=== PATIENT | male | born 1990 | race Caucasian/White ===

== ENCOUNTER 2020-04-30 09:11 | Emergency (ER) | payer BC ==
[2020-04-30 10:47] LABS: Protime INR 0.91
[2020-04-30 10:49] LABS: Basophils % 0.3 % (0-1.3); Hematocrit 46.1 % (39.6-49.0); RBC Red Blood Cell Count 5.19 M/uL (4.33-5.43)
[2020-04-30] MEDS ORDERED: MECLIZINE HCL 12.5 MG TAB ONE (10:54)
[2020-04-30] MEDS ORDERED: NA CHLORIDE 0.9% 1,000 ML ONE (10:55)
[2020-04-30] MEDS ORDERED: ONDANSETRON 4 MG/2 ML VIAL ONE (10:55)
[2020-04-30 11:04] LABS: ALT/SGPT 20 U/L (12-78); AST/SGOT 11 U/L (15-37); Alkaline Phosphatase 88 U/L (45-117); BUN Blood Urea Nitrogen 11 mg/dL (7-18); Bicarbonate 23 mmol/L (21-32); Bilirubin Direct < 0.1 mg/dL (0-0.2); Bilirubin Total 0.3 mg/dL (0.2-1.0); Glucose Level 118 mg/dL (74-106); Magnesium 2.1 mg/dL (1.8-2.4); Potassium 3.9 mmol/L (3.5-5.1); Protein, Total 7.8 g/dL (6.4-8.2); Sodium Level 139 mmol/L (136-145); Troponin (Emerg Dept Use Only) < 0.02 ng/mL (0.0-0.045)
[2020-04-30] MEDS ORDERED: SCOPOLAMINE HYDROBROMIDE PATCH TD ONE (13:15)
--- NOTE | 2020-04-30 14:07 | EDPHYS ---
Physician Documentation [facility] Name: Lizandro Hermosillo Age: 30 yrs Sex: Male : 1990 Arrival Date: 04/30/2020 Time: 09:13 Bed 24 Private MD: Daniel Mcdonald HPI: 04/30 10:15 This 30 yrs old Male presents to ER via Ambulatory with complaints of cp Dizziness, Nausea, Ear Problem. 10:15 The patient presents with dizziness, sense of spinning. Onset: The symptoms/episode cp began/occurred yesterday, and became worse today. Context: just prior to the episode the patient experienced decreased hearing right ear. Associated signs and symptoms: Pertinent positives: nausea, vomiting, Pertinent negatives: abdominal pain, chest pain, focal weakness, headache, seizure. Patient's baseline: Neuro: alert and fully oriented, Motor: no deficits, Ambulation: walks without assistance, Speech: normal. Historical: - Allergies: 09:50 No Known Allergies; ss - Home Meds: 09:50 None [Active]; ss - PMHx: 09:50 Hypertension; ss - PSHx: 09:50 None; ss - Immunization history:: Adult Immunizations up to date. - Social history:: Smoking status: Patient denies any tobacco usage or history of. ROS: 10:17 Eyes: Negative for injury, pain, redness, and discharge. cp 10:17 Constitutional: Negative for body aches, chills, fever, poor PO intake. 10:17 ENT: Positive for hearing loss, Negative for drainage from ear(s), ear pain, sore throat, difficulty swallowing, difficulty handling secretions. 10:17 Cardiovascular: Negative for chest pain, palpitations. 10:17 Respiratory: Negative for cough, shortness of breath, wheezing. 10:17 Abdomen/GI: Positive for nausea and vomiting, Negative for abdominal pain, black/tarry stool, rectal bleeding. 10:17 Skin: Negative for rash. 10:17 Neuro: Positive for dizziness, Negative for altered mental status, headache, numbness, seizure activity, speech changes, syncope, weakness. 10:17 All other systems are negative. Exam: 10:25 Constitutional: The patient appears in no acute distress, alert, awake, cp non-diaphoretic, non-toxic, well developed, well nourished. 10:25 Head/Face: Normocephalic, atraumatic. cp 10:25 Eyes: Periorbital structures: appear normal, Pupils: equal, round, and reactive to light and accomodation, Extraocular movements: intact throughout, Conjunctiva: normal, no exudate, no injection, Sclera: no appreciated abnormality, Lids and lashes: appear normal, bilaterally. 10:25 ENT: External ear(s): are unremarkable, Ear canal(s): are normal, clear, TM's: dullness, bilaterally, Nose: is normal, Mouth: Lips: moist, Oral mucosa: pink and intact, moist. 10:25 Neck: ROM/movement: is normal, is supple, without pain, no range of motions limitations. 10:25 Chest/axilla: Inspection: normal, Palpation: is normal, no crepitus, no tenderness. 10:25 Cardiovascular: Rate: normal, Rhythm: regular, Edema: is not appreciated, JVD: is not appreciated. 10:25 Respiratory: the patient does not display signs of respiratory distress, Respirations: normal, no use of accessory muscles, no retractions, labored breathing, is not present, Breath sounds: are clear throughout, no decreased breath sounds, no stridor, no wheezing. 10:25 Abdomen/GI: Inspection: abdomen appears normal, Bowel sounds: active, all quadrants, Palpation: abdomen is soft and non-tender, in all quadrants. 10:25 Neuro: Orientation: to person, place \T\ time. Mentation: is normal, Cerebellar function: is grossly normal, Motor: moves all fours, strength is normal, Sensation: is normal. 11:06 ECG was reviewed by the Attending Physician. cp Vital Signs: 09:46 BP 153 / 109; Pulse 77; Resp 16; Temp 97.0(TE); Pulse Ox 99% on R/A; Weight 92.99 kg; ss Height 5 ft. 11 in. (180.34 cm); Pain 0/10; 10:47 BP 140 / 81 Supine; Pulse 70; Resp 17; Pulse Ox 100% ; bp 10:49 BP 157 / 92 Sitting; Pulse 76; bp 10:51 BP 157 / 92 Standing; Pulse 76; bp 11:00 BP 159 / 85; Pulse 72; Resp 17; Pulse Ox 99% ; bp 12:00 BP 137 / 78; Pulse 65; Resp 16; Pulse Ox 99% ; bp 12:40 BP 133 / 68 Supine; Pulse 71; Pulse Ox 99% ; bp 12:42 BP 158 / 95 Sitting; Pulse 78; Resp 16; Pulse Ox 97% ; bp 12:44 BP 153 / 93 Standing; Pulse 77; Resp 16; Pulse Ox 99% ; bp 09:46 Body Mass Index 28.59 (92.99 kg, 180.34 cm) ss MDM: 09:52 Patient medically screened. bouchra 11:00 Differential diagnosis: CVA, hypovolemia, idiopathic dizziness, TIA. cp 14:05 Data reviewed: vital signs, nurses notes, lab test result(s), radiologic studies, CT cp scan, and as a result, I will discharge patient. 14:05 Test interpretation: by ED physician or midlevel provider: ECG. Counseling: I had a cp detailed discussion with the patient and/or guardian regarding: the historical points, exam findings, and any diagnostic results supporting the discharge/admit diagnosis, lab results, radiology results, to return to the emergency department if symptoms worsen or persist or if there are any questions or concerns that arise at home. Response to treatment: the patient's symptoms have markedly improved after treatment, Nausea and dizziness markedly improved and vomiting resolved. Will discharge to home for continued monitoring. 04/30 10:12 Order name: Basic Metabolic Panel 04/30 10:12 Order name: CBC with Diff 04/30 10:12 Order name: LFT's 04/30 10:12 Order name: Magnesium 04/30 10:12 Order name: PT-INR 04/30 10:12 Order name: Troponin (emerg Dept Use Only); Complete Time: 11:41 04/30 11:41 Interpretation: TROPED < 0.02; Reviewed. 04/30 10:12 Order name: CT Head Brain wo Cont cp 04/30 10:13 Order name: Basic Metabolic Panel; Complete Time: 11:41 EDMS 04/30 11:41 Interpretation: Normal except: CL 109; GLUC 118. 04/30 10:13 Order name: CBC with Automated Diff; Complete Time: 11:41 EDMS 04/30 10:13 Order name: Liver (Hepatic) Function; Complete Time: 11:41 EDVT 04/30 11:41 Interpretation: Normal except: AST 11; GLOB 3.8. cp 04/30 10:13 Order name: Magnesium; Complete Time: 11:41 EDMS 04/30 10:13 Order name: Protime (+INR); Complete Time: 11:41 EDMS 04/30 10:03 Order name: Orthostatics; Complete Time: 11:13 cp 04/30 10:12 Order name: EKG; Complete Time: 10:13 cp 04/30 10:12 Order name: Cardiac monitoring; Complete Time: 10: cp 04/30 10:12 Order name: EKG - Nurse/Tech; Complete Time: 11: cp 04/30 10:12 Order name: IV Saline Lock; Complete Time: 11:13 cp 04/30 10:12 Order name: Labs collected and sent; Complete Time: : cp 04/30 10:12 Order name: O2 Per Protocol; Complete Time: : cp 04/30 10:12 Order name: O2 Sat Monitoring; Complete Time: : cp 04/30 11:44 Order name: Misc. Order: repeat orthostatics and ambulate; Complete Time: 12:53 cp EC: Rate is 67 beats/min. Rhythm is regular. HI interval is normal. QRS interval is normal. cp QT interval is normal. T waves are Inverted in leads III, aVF, V3. Interpreted by me. Reviewed by me. Administered Medications: 10:30 Drug: Meclizine 25 mg Route: PO; bp 10:30 Drug: NS 0.9% 1000 ml Route: IV; Rate: 1 bolus; Site: right antecubital; bp 10:30 Drug: Zofran (Ondansetron) 4 mg Route: IVP; Site: right antecubital; bp 14:02 Drug: Scopolamine 1 patches {Note: behind left ear .} Route: Transdermal; Site: iw affected area; 14:51 Not Given (Patient Refused): Phenergan 12.5 mg IVP once iw Disposition: 04/30/20 14:06 Discharged to Home. Impression: Dizziness and giddiness, Nausea and vomiting, Hypertensive heart disease. - Condition is Stable. - Discharge Instructions: Dizziness, Hypertension, Nausea and Vomiting, Adult, Vertigo, How to Take Your Blood Pressure, [id number]. - Prescriptions for Meclizine 25 mg Oral Tablet - take 1 tablet by ORAL route every 8 hours As needed; 30 tablet. promethazine 25 mg Oral Tablet - take 1 tablet by ORAL route every 6 hours As needed; 20 tablet. - Medication Reconciliation Form, Thank You Letter, Antibiotic Education, Prescription Opioid Use form. - Follow up: Isabel Curry MD; When: 2 - 3 days; Reason: Worsening of condition. Follow up: Dheeraj Clark MD; When: 2 - 3 days; Reason: hypertension. - Problem is new. - Symptoms have improved. Addendum: 05/02/2020 06:58 Co-signature as Attending Physician, Daniel Mejía MD I agree with the assessment and c argueta plan of care. Signatures: Dispatcher [employer] EDMS Daniel Mejía MD MD cha Williams, Irene, RN RN iw Gabriella Samano RN RN ss Daniel Monge PA PA Colton Orosco RN RN bp Corrections: (The following items were deleted from the chart) 04/30 14:08 14:06 04/30/2020 14:06 Discharged to Home. Impression: Dizziness and giddiness; Nausea cp and vomiting. Condition is Stable. Forms are Medication Reconciliation Form, Thank You Letter, Antibiotic Education, Prescription Opioid Use. Follow up: Isabel Curry; When: 2 - 3 days; Reason: Worsening of condition. Problem is new. Symptoms have improved. cp 14:24 14:08 04/30/2020 14:06 Discharged to Home. Impression: Dizziness and giddiness; Nausea cp and vomiting; Hypertensive heart disease. Condition is Stable. Discharge Instructions: Dizziness, Nausea and Vomiting, Adult, Vertigo. Prescriptions for Meclizine 25 mg Oral Tablet - take 1 tablet by ORAL route every 8 hours As needed; 30 tablet, promethazine 25 mg Oral Tablet - take 1 tablet by ORAL route every 6 hours As needed; 20 tablet. and Forms are Medication Reconciliation Form, Thank You Letter, Antibiotic Education, Prescription Opioid Use. Follow up: Isabel Curry; When: 2 - 3 days; Reason: Worsening of condition. Follow up: Private Physician; When: 1 - 2 days; Reason: elevated blood pressure. Problem is new. Symptoms have improved. cp 14:51 14:24 04/30/2020 14:06 Discharged to Home. Impression: Dizziness and giddiness; Nausea iw and vomiting; Hypertensive heart disease. Condition is Stable. Discharge Instructions: Dizziness, Nausea and Vomiting, Adult, Vertigo, Hypertension, How to Take Your Blood Pressure, [id number]. Prescriptions for Meclizine 25 mg Oral Tablet - take 1 tablet by ORAL route every 8 hours As needed; 30 tablet, promethazine 25 mg Oral Tablet - take 1 tablet by ORAL route every 6 hours As needed; 20 tablet. and Forms are Medication Reconciliation Form, Thank You Letter, Antibiotic Education, Prescription Opioid Use. Follow up: Isabel Curry; When: 2 - 3 days; Reason: Worsening of condition. Follow up: Dheeraj Clark; When: 2 - 3 days; Reason: hypertension. Problem is new. Symptoms have improved. cp
--- NOTE | 2020-04-30 14:07 | ER ---
Nurse's Notes [facility] Name: Lizandro Hermosillo Age: 30 yrs Sex: Male : 1990 Arrival Date: 04/30/2020 Time: 09:13 Bed 24 Private MD: Diagnosis: Dizziness and giddiness;Nausea and vomiting;Hypertensive heart disease Presentation: 04/30 09:46 Chief complaint: Patient states: Hearing loss and dizziness that began yesterday ss morning, but today the dizziness is much worse. Pt reports when he got up out of bed, it felt like the world was spinning and made him vomit. Coronavirus screen: Client denies travel out of the [place] in the last 14 days. Ebola Screen: Patient denies exposure to infectious person. Patient denies travel to an Ebola-affected area in the 21 days before illness onset. Initial Sepsis Screen: Does the patient meet any 2 criteria? No. Patient's initial sepsis screen is negative. Does the patient have a suspected source of infection? No. Patient's initial sepsis screen is negative. Risk Assessment: Do you want to hurt yourself or someone else? Patient reports no desire to harm self or others. Onset of symptoms was April 29, 2020. 09:46 Method Of Arrival: Ambulatory ss 09:46 Acuity: JUAN JOSE 3 ss Triage Assessment: 10:00 General: Appears distressed, uncomfortable, Behavior is cooperative, appropriate for bp age, anxious. Pain: Denies pain. EENT: Reports decreased hearing. Neuro: Reports dizziness. Cardiovascular: No deficits noted. Respiratory: No deficits noted. GI: Reports nausea, vomiting. : No signs and/or symptoms were reported regarding the genitourinary system. Derm: No deficits noted. Musculoskeletal: No deficits noted. Historical: - Allergies: 09:50 No Known Allergies; ss - Home Meds: 09:50 None [Active]; ss - PMHx: 09:50 Hypertension; ss - PSHx: 09:50 None; ss - Immunization history:: Adult Immunizations up to date. - Social history:: Smoking status: Patient denies any tobacco usage or history of. Screenin:00 Abuse screen: Denies threats or abuse. Denies injuries from another. Nutritional bp screening: No deficits noted. Tuberculosis screening: No symptoms or risk factors identified. Fall Risk None identified. Assessment: 10:00 General: SEE TRIAGE NOTE. GI: Abdomen is non-distended. bp 11:00 Reassessment: No changes from previously documented assessment. Patient and/or family bp updated on plan of care and expected duration. Pain level reassessed. Patient is alert, oriented x 3, equal unlabored respirations, skin warm/dry/pink. PT VOMITING WHEN ATTEMPTING TO AMBULATE. 12:30 Reassessment: No changes from previously documented assessment. Patient and/or family bp updated on plan of care and expected duration. Pain level reassessed. Patient is alert, oriented x 3, equal unlabored respirations, skin warm/dry/pink. PT MOVED TO OTHER CARE AREA. 13:30 Reassessment: Patient appears in no apparent distress at this time. Patient and/or iw family updated on plan of care and expected duration. Pain level reassessed. Patient is alert, oriented x 3, equal unlabored respirations, skin warm/dry/pink. Neuro: Reports dizziness. Respiratory: Respiratory effort is even, unlabored. Vital Signs: 09:46 BP 153 / 109; Pulse 77; Resp 16; Temp 97.0(TE); Pulse Ox 99% on R/A; Weight 92.99 kg; ss Height 5 ft. 11 in. (180.34 cm); Pain 0/10; 10:47 BP 140 / 81 Supine; Pulse 70; Resp 17; Pulse Ox 100% ; bp 10:49 BP 157 / 92 Sitting; Pulse 76; bp 10:51 BP 157 / 92 Standing; Pulse 76; bp 11:00 BP 159 / 85; Pulse 72; Resp 17; Pulse Ox 99% ; bp 12:00 BP 137 / 78; Pulse 65; Resp 16; Pulse Ox 99% ; bp 12:40 BP 133 / 68 Supine; Pulse 71; Pulse Ox 99% ; bp 12:42 BP 158 / 95 Sitting; Pulse 78; Resp 16; Pulse Ox 97% ; bp 12:44 BP 153 / 93 Standing; Pulse 77; Resp 16; Pulse Ox 99% ; bp 09:46 Body Mass Index 28.59 (92.99 kg, 180.34 cm) ED Course: 09:13 Patient arrived in ED. as 09:49 Triage completed. ss 09:50 Colton Olivas, RN is Primary Nurse. bp 09:50 Arm band placed on right wrist. ss 09:51 Daniel [facility]ge [facility]. cp 09:51 Daniel Mejía MD is Attending Physician. cp 10:00 Patient has correct armband on for positive identification. Bed in low position. Call bp light in reach. Side rails up X2. 10:27 CT Head Brain wo Cont In Process Unspecified. EDMS 10:35 Initial lab(s) drawn, by me, sent to lab. Inserted saline lock: 20 gauge in right iw antecubital area, using aseptic technique. Blood collected. 13:41 Primary Nurse role handed off by Colton Olivas RN iw 13:41 Jessenia Shepard, ROBYN is Primary Nurse. iw 14:05 Isabel Curry MD is Referral Physician. cp 14:24 Dheeraj Clark MD is Referral Physician. cp 14:50 No provider procedures requiring assistance completed. IV discontinued, intact, iw bleeding controlled, No redness/swelling at site. Pressure dressing applied. Administered Medications: 10:30 Drug: Meclizine 25 mg Route: PO; bp 10:30 Drug: NS 0.9% 1000 ml Route: IV; Rate: 1 bolus; Site: right antecubital; bp 10:30 Drug: Zofran (Ondansetron) 4 mg Route: IVP; Site: right antecubital; bp 14:02 Drug: Scopolamine 1 patches {Note: behind left ear .} Route: Transdermal; Site: iw affected area; 14:51 Not Given (Patient Refused): Phenergan 12.5 mg IVP once iw Outcome: 14:06 Discharge ordered by MD. cp 14:50 Discharged to home via wheelchair, with friend. iw 14:50 Condition: good 14:50 Discharge instructions given to patient, Instructed on discharge instructions, follow up and referral plans. medication usage, Demonstrated understanding of instructions, follow-up care, medications, Prescriptions given X 2. 14:51 Patient left the ED. iw Signatures: Dispatcher [employer] EDHI Elva Ag as Jessenia Shepard, ROBYN CARLSON Gabriella Samano RN RN ss Daniel Monge PA PA cp Colton Olivas RN RN bp
[2020-04-30 14:58] VITALS: TEMP 97
[2020-04-30 15:15] VITALS: BP 153/93; O2SAT 99
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
--- NOTE | 2020-05-01 14:39 | EKG ---
Test Date: 2020-04-30 Test Time: 11:01:10 Reel Cart Operator: BP MEASUREMENT RESULTS: Intervals: Rate: 67 OH: 152 QRSD: 94 QT: 412 QTc: 435 [place]: P: 11 OH: 152 QRS: 30 T: -2 INTERPRETIVE STATEMENTS: Normal sinus rhythm Cannot rule out Inferior infarct, age undetermined Anterior infarct, age undetermined Abnormal ECG Compared to ECG 06/08/2016 03:56:26 Myocardial infarct finding now present Electronically Signed On 05-01-20 14:37:39 TAPPER SUPERVISOR by Julian Dong
== END 2020-04-30 14:51 | disposition home or self-care (01) ==
LOC: ER 09:11
DX: R42 Dizziness and giddiness (principal); R11.2 Nausea with vomiting, unspecified; I11.9 Hypertensive heart disease without heart failure
CPT/HCPCS: 93005; 85025; 80048; 36415; 83735; 85610; 80076; 84484; 70450; 96374; 99284; J7030; J2405